=== PATIENT | female | born 1995 | race Caucasian/White ===

== ENCOUNTER 2017-10-19 15:30 | Emergency (ER) | payer MEDICAID ==
[2017-10-19 16:14] VITALS: BP 137/86; PULSE 70; RESP 18; TEMP 98.3; O2SAT 100
== END 2017-10-19 18:46 | disposition left against medical advice (07) ==
LOC: H.ER 15:30
DX: Z02.89 Encounter for other administrative examinations (principal)

== ENCOUNTER 2018-02-17 20:29 | Emergency (ER) | payer MEDICAID ==
[2018-02-17] MEDS ORDERED: Lactated Ringer's 1,000 ML IV STA (21:29)
--- NOTE | 2018-02-17 21:55 | ED PDOC ---
HPI: Abdomen Time Seen by Provider: 02/17/18 21:08 Chief Complaint (Nursing): Abdominal Pain Chief Complaint (Provider): Abdominal Pain History Per: Patient History/Exam Limitations: no limitations Onset/Duration Of Symptoms: Days (5-6) Location Of Pain/Discomfort: Suprapubic Associated Symptoms: Urinary Symptoms (Vaginal bleeding) Additional Complaint(s): 22 years old female otherwise healthy, who is 18 weeks , presents to ER for evaluation of vaginal bleeding started 5 days ago. Patient reports having pelvic pain, describes it as pressure in lower abdomen 6 days ago. She states flow of bleeding is similar to period and reports dark spots. Patient follow up with NURSE CARE MANAGER in [place] but cannot recall the name and states last time she has seen her NURSE CARE MANAGER was 3 weeks ago when everything was fine. She reports they were recently watching her thyroid hormone because it was below the norm. Patient states she did not come earlier because she thought it was normal for some women to have their period during . She denies any dysuria, nausea or diarrhea. PMD: cannot recall the name Past Medical History Reviewed: Historical Data, Nursing Documentation, Vital Signs Vital Signs: Last Vital Signs Temp 98.7 F 02/17/18 20:59 Pulse 68 02/17/18 20:59 Resp 18 02/17/18 20:59 BP 120/81 02/17/18 20:59 Pulse Ox 98 02/17/18 20:59 - Medical History PMH: No Chronic Diseases - Surgical History Surgical History: Cholecystectomy Other surgeries: Left knee surgery - Family History Family History: States: Diabetes, Hypertension, Other Other Family History: High cholesterol - Social History Current smoker - smoking cessation education provided: No Ex-Smoker (has not smoked in the last 12 months): Yes (Hookah, but stopped since ) Alcohol: None Drugs: Denies - Immunization History Hx Tetanus Toxoid Vaccination: Yes - Home Medications Home Medications: Ambulatory Orders Medication Instructions Recorded No Known Home Med 12/29/15 - Allergies Allergies/Adverse Reactions: Allergies Allergy/AdvReac Type Severity Reaction Status Date / Time No Known Allergies Allergy Verified 12/29/15 09:18 Review of Systems ROS Statement: Except As Marked, All Systems Reviewed And Found Negative Gastrointestinal: Positive for: Abdominal Pain (Suprapubic). Negative for: Nausea, Diarrhea Genitourinary Female: Positive for: Vaginal Bleeding. Negative for: Dysuria Physical Exam - Reviewed Nursing Documentation Reviewed: Yes Vital Signs Reviewed: Yes - Physical Exam Appears: Positive for: Non-toxic, No Acute Distress Head Exam: Positive for: ATRAUMATIC, NORMOCEPHALIC Gastrointestinal/Abdominal: Positive for: Tenderness (Mild suprapubic). Negative for: Mass, Guarding, Rebound, Other (Adnexal or midline tenderness) Extremity: Positive for: Normal ROM. Negative for: Tenderness, Swelling Neurologic/Psych: Positive for: Alert, Oriented (x3) - ECG O2 Sat by Pulse Oximetry: 98 (RA) Pulse Ox Interpretation: Normal Medical Decision Making Medical Decision Making: Time: 2108 Initial Impression: vaginal bleeding. Differential includes but not limited to threatened or complete miscarriage, regular menstruation and dysfunctional uterine bleeding. Initial Plan: --Labs --Lactated Ringers 1,000 ml IV Patient reports she saw her NURSE CARE MANAGER for initial care visit but had not seen him again until 3 weeks ago to follow up with blood work. At that time, no US was done or any further evaluation of Scribe Attestation: Documented by Laine Walker, acting as a scribe for Allie Valentine MD. Provider Scribe Attestation: All medical record entries made by the Scribe were at my direction and personally dictated by me. I have reviewed the chart and agree that the record accurately reflects my personal performance of the history, physical exam, medical decision making, and the department course for this patient. I have also personally directed, reviewed, and agree with the discharge instructions and disposition. Disposition - Disposition Forms: [employer] (Mosotho)
[2018-02-17 22:03] LABS: BASO # 0.1 K/uL (0.0-0.2); EOS # 0.2 K/uL (0.0-0.7); EOS % 1.6 % (0.0-4.0); HEMOGLOBIN 14.5 g/dL (12.0-16.0); LYMPH # 3.6 K/uL (1.0-4.3); LYMPH % 35.9 % (20.0-40.0); MEAN CELL VOLUME 84.5 fl (81.0-99.0); MEAN CORPUSCULAR HGB CONC 34.4 g/dL (33.0-37.0); MEAN PLATELET VOLUME 7.2 fl (7.2-11.7); MONO # 0.8 K/uL (0.0-0.8); MONO % 7.7 % (0.0-10.0); NEUT # 5.5 K/uL (1.8-7.0); NEUT % 53.8 % (50.0-75.0); NRBC % 0.2 % (0.0-0.0); RED CELL DISTRIBUTION WIDTH 13.7 % (11.5-14.5); WHITE BLOOD COUNT 10.2 K/uL (4.8-10.8)
[2018-02-17 22:08] LABS: ALB/GLOB RATIO 1.2 (1.0-2.1); ALBUMIN 4.3 g/dL (3.5-5.0); ALT/SGPT 34 U/L (9-52); AST/SGOT 28 U/L (14-36); BLOOD UREA NITROGEN 14 mg/dl (7-17); CALCIUM 9.3 mg/dL (8.4-10.2); GFR NON-AFRICAN AMERICAN > 60; LIPASE 80 U/L (23-300)
--- NOTE | 2018-02-18 00:37 | ED PDOC ---
- Laboratory Results Result Diagrams: 02/17/18 21:35 02/17/18 21:35 - ECG O2 Sat by Pulse Oximetry: 98 (RA) Pulse Ox Interpretation: Normal Medical Decision Making Medical Decision Making: Time: 23:00 Patient was endorsed to me by Dr. Valentine pending ultrasound and reevaluation. Transvaginal Ultrasound: Impression: 1. Normal Uterus 2. Follicular ovaries. 3. No findings for . Time: 0000 Patient informed of results, states she's feeling well. Patient appears very well appearing. Instructed patient to followup with PMD/PEDIATRIC PSYCHOLOGIST. Scribe Attestation: Documented by Jazz Ribera, acting as a scribe for Gunnar Leung MD. Provider Scribe Attestation: All medical record entries made by the Scribe were at my direction and personal ly dictated by me. I have reviewed the chart and agree that the record accurately reflects my personal performance of the history, physical exam, medical decision making, and the department course for this patient. I have also personally directed, reviewed, and agree with the discharge instructions and disposition. Disposition - Clinical Impression Clinical Impression: Abdominal pain, Vaginal bleeding - POA Present On Arrival: None - Disposition [facility] Merline Wagner MD [Family Provider] - Disposition: Routine/Home Disposition Time: 00:00 Condition: STABLE Instructions: Heavy Periods Forms: [employer] (Kenyan)
[2018-02-18 00:59] VITALS: BP 125/81; PULSE 82; RESP 17; TEMP 98.4
[2018-02-18 03:17] VITALS: O2SAT 98
--- NOTE | 2018-02-18 12:14 | US ---
Date of service: 02/17/2018 HISTORY: abnormal vaginal bleeding pelvic pain r/o retained COMPARISON: None available. TECHNIQUE: Real-time transabdominal pelvic ultrasound was performed. In addition a transvaginal pelvic ultrasound was necessary to better depict pelvic anatomy. FINDINGS: UTERUS: Measures 7.0 x 3.6 x 5.5 cm. Anteverted. Cervix length measures approximately 4.1 cm. ENDOMETRIUM: Measures 7 mm in diameter. CERVIX: Cervix length measures approximately 4.1 cm. RIGHT OVARY: Measures 3.3 x 2.0 x 1.8 cm. Blood flow is demonstrated. LEFT OVARY: Measures 2.7 x 1.7 x 2.6 cm. Blood flow is demonstrated. FREE FLUID: No significant free fluid noted. OTHER FINDINGS: None. IMPRESSION: Unremarkable study as above. Preliminary impression was provided by [employer].
== END 2018-02-18 00:44 | disposition home or self-care (01) ==
LOC: H.ER 20:29
DX: O20.9 Hemorrhage in early pregnancy, unspecified (principal); O26.92 Pregnancy related conditions, unspecified, second trimester; R10.2 Pelvic and perineal pain; Z3A.18 18 weeks gestation of pregnancy; Z87.891 Personal history of nicotine dependence
CPT/HCPCS: 76830; 80053; 81025; 83690; 84702; 85025; 86850; 86900; 87491; 87591; 96360; 99284; J7120

== ENCOUNTER 2018-02-19 13:11 | Emergency (ER) | payer MEDICAID ==
--- NOTE | 2018-02-19 13:55 | ED PDOC ---
HPI: General Adult Time Seen by Provider: 02/19/18 13:19 Chief Complaint (Nursing): Abnormal Labs Chief Complaint (Provider): Abnormal Labs History Per: Patient History/Exam Limitations: no limitations Onset/Duration Of Symptoms: Days (x2) Current Symptoms Are (Timing): Still Present Additional Complaint(s): 22 year old female presents to the ED for evaluation of abnormal lab results. Patient was seen here 02/17 where she believes she was secondary to vaginal bleeding, but the u-preg came back negative. Chlamydia cultures were sent out and today she was called for positive results, gonorrhea was negative. Otherwise denies abdominal pain and vaginal discharge. Of note, her boyfriend is with her who is also requesting to be treated. PMD: Merline Wagner Past Medical History Reviewed: Historical Data, Nursing Documentation, Vital Signs - Medical History PMH: Asthma - Surgical History Surgical History: Cholecystectomy - Family History Family History: States: Diabetes, Hypertension - Immunization History Hx Tetanus Toxoid Vaccination: Yes - Home Medications Home Medications: Ambulatory Orders Medication Instructions Recorded No Known Home Med 12/29/15 - Allergies Allergies/Adverse Reactions: Allergies Allergy/AdvReac Type Severity Reaction Status Date / Time No Known Allergies Allergy Verified 02/19/18 13:24 Review of Systems ROS Statement: Except As Marked, All Systems Reviewed And Found Negative Gastrointestinal: Negative for: Abdominal Pain Genitourinary Female: Positive for: Vaginal Bleeding. Negative for: Vaginal Discharge Physical Exam - Reviewed Nursing Documentation Reviewed: Yes Vital Signs Reviewed: Yes - Physical Exam Appears: Positive for: No Acute Distress Head Exam: Positive for: ATRAUMATIC, NORMOCEPHALIC Skin: Positive for: Normal Color. Negative for: Rash Eye Exam: Positive for: Normal appearance Cardiovascular/Chest: Positive for: Regular Rate, Rhythm Respiratory: Positive for: Normal Breath Sounds. Negative for: Accessory Muscle Use, Respiratory Distress Gastrointestinal/Abdominal: Positive for: Normal Exam, Soft. Negative for: Tenderness Pelvic Exam: Positive for: Other (deferred) Neurologic/Psych: Positive for: Alert, Oriented (x3) Medical Decision Making Medical Decision Making: Time: 1345 Initial Impression: chlamydia Initial Plan: u.preg from previous visit, neg. --Zithromax 1000mg PO --Pt advised to follow up with PMD for further testing incuding HIV and Hep. Informed to abstain from sexual contact for one week. Scribe Attestation: Documented by Ellie Dick, acting as a scribe for Veronique Dickens PA-C. Provider Scribe Attestation: All medical record entries made by the Scribe were at my direction and personally dictated by me. I have reviewed the chart and agree that the record accurately reflects my personal performance of the history, physical exam, medical decision making, and the department course for this patient. I have also personally directed, reviewed, and agree with the discharge instructions and disposition. Disposition - Clinical Impression Clinical Impression: Chlamydia infection - Patient ED Disposition Is Patient to be Admitted: No Counseled Patient/Family Regarding: Studies Performed, Diagnosis - Disposition Disposition: Routine/Home Disposition Time: 14:39 Condition: GOOD Additional Instructions: follow up with your inspector filters next week. no sexual contact x 1 week. partners must be treated. Instructions: Chlamydia (DC), Sexually-Transmitted Diseases Forms: [employer] (Mongolian)
== END 2018-02-19 15:00 | disposition home or self-care (01) ==
LOC: H.ER 13:11
DX: A74.9 Chlamydial infection, unspecified (principal)

== ENCOUNTER 2018-05-04 22:23 | Emergency (ER) | payer MEDICAID ==
[2018-05-04 23:15] VITALS: BP 142/84; PULSE 98; RESP 16; TEMP 98.2; O2SAT 99
--- NOTE | 2018-05-05 01:41 | ED PDOC ---
HPI: Abdomen Time Seen by Provider: 05/04/18 23:19 Chief Complaint (Nursing): Abdominal Pain Chief Complaint (Provider): Abdominal Pain History Per: Patient History/Exam Limitations: no limitations Onset/Duration Of Symptoms: Days (x45) Location Of Pain/Discomfort: RUQ, RLQ Associated Symptoms: Nausea. denies: Fever, Chills, Vomiting, Loss Of Appetite, Urinary Symptoms Additional Complaint(s): 22 years old female with no pmhx presents to ER for evaluation of right pelvic pain that goes on and off associated with nausea for one and a half month. Patient reports pain started in pelvic area radiating to belly button. She states pain worsens with cough and bearing down. Patient denies any vomiting, fever, chills, abnormal stools or loss of appetite. PMD: Merline Wagner Past Medical History Reviewed: Historical Data, Nursing Documentation, Vital Signs Vital Signs: Last Vital Signs Temp 98.2 F 05/04/18 23:11 Pulse 98 H 05/04/18 23:11 Resp 16 05/04/18 23:11 BP 142/84 05/04/18 23:11 Pulse Ox 99 05/04/18 23:11 - Medical History PMH: Asthma - Surgical History Surgical History: Cholecystectomy - Family History Family History: States: Diabetes, Hypertension - Social History Current smoker - smoking cessation education provided: No Alcohol: None Drugs: Denies - Immunization History Hx Tetanus Toxoid Vaccination: Yes - Home Medications Home Medications: Ambulatory Orders Medication Instructions Recorded Ibuprofen [Motrin Tab] 600 mg PO Q6 #30 tab 05/05/18 - Allergies Allergies/Adverse Reactions: Allergies Allergy/AdvReac Type Severity Reaction Status Date / Time No Known Allergies Allergy Verified 05/04/18 23:15 Review of Systems ROS Statement: Except As Marked, All Systems Reviewed And Found Negative Constitutional: Negative for: Fever, Chills Gastrointestinal: Positive for: Nausea, Abdominal Pain (right pelvic). Negative for: Vomiting, Hematochezia Physical Exam - Reviewed Nursing Documentation Reviewed: Yes Vital Signs Reviewed: Yes - Physical Exam Appears: Positive for: Non-toxic, No Acute Distress Head Exam: Positive for: ATRAUMATIC, NORMOCEPHALIC Skin: Positive for: Normal Color, Warm, Dry Neck: Positive for: Normal, Painless ROM, Supple Cardiovascular/Chest: Positive for: Regular Rate, Rhythm. Negative for: Murmur Respiratory: Positive for: Normal Breath Sounds. Negative for: Respiratory Di stress Gastrointestinal/Abdominal: Positive for: Tenderness (right sided) Pelvic Exam: Positive for: No Cerv. Motion Tender, Tender Adnexa (mild right sided) Back: Positive for: Normal Inspection. Negative for: L CVA Tenderness, R CVA Tenderness Extremity: Positive for: Normal ROM. Negative for: Pedal Edema, Deformity Neurologic/Psych: Positive for: Alert, Oriented (x3) - ECG O2 Sat by Pulse Oximetry: 99 (RA) Pulse Ox Interpretation: Normal Medical Decision Making Medical Decision Making: Time: 2354 A/P: no specific pelvic pain, not concern for appendicitis --Ordered pelvis US to rule out ovarian pathology such as torsion --Director Of Volunteer Services was dialysis equipment technicianChely monet 0106 Pelvis US Findings: The uterus is normal in size measuring 8x3.7x5.8 cm. The endometrium is normal in thickness measuring 6.2 mm. Normal cervical length measuring 3.3 cm. Anteverted uterus. Right ovary measures 2.8x2.2x1.8 cm. Right ovarian cyst measuring 1.7 cm. The left ovary measures the 3.5x2.9x2.3 cm. Normal bilateral ovarian flow. Impression: Right ovarian simple cyst. Patient continued to be well appearing, feeling better after motrin Advised patient to followup with EQUIPMENT INSTALLER Return precautions and appendicitis precautions discussed Scribe Attestation: Documented by Laine Walker, acting as a scribe for Gunnar Leung MD. Provider Scribe Attestation: All medical record entries made by the Scribe were at my direction and personally dictated by me. I have reviewed the chart and agree that the record accurately reflects my personal performance of the history, physical exam, medical decision making, and the department course for this patient. I have also personally directed, reviewed, and agree with the discharge instructions and disposition. Disposition - Clinical Impression Clinical Impression: Ovarian cyst - Patient ED Disposition Is Patient to be Admitted: No - Disposition [facility]] Disposition Time: 01:00 Condition: STABLE Prescriptions: Ibuprofen [Motrin Tab] 600 mg PO Q6 #30 tab Instructions: Ovarian Cysts Forms: [employer] (Ukrainian)
--- NOTE | 2018-05-05 11:03 | US ---
Date of service: 05/05/2018 HISTORY: R sided pelvic pain COMPARISON: None available. TECHNIQUE: Transabdominal and transvaginal pelvic ultrasound was performed. FINDINGS: UTERUS: Measures 8.0 x 3.7 x 5.8 cm. Anteverted, normal in size and appearance. Normal myometrial echotexture. No fibroid or other mass lesion seen. ENDOMETRIUM: Measures 6.2 mm in diameter. Unremarkable. CERVIX: No cervical abnormality identified. RIGHT OVARY: Measures 2.8 x 2.2 x 1.8 cm. No solid mass. Normal flow. There is a 1.7 x 1.6 x 1.5 cm dominant follicle. LEFT OVARY: Measures 3.5 x 2.9 x 2.3 cm. No solid mass. Normal flow. FREE FLUID: No significant free fluid noted. OTHER FINDINGS: None. IMPRESSION: Unremarkable pelvic ultrasound. A preliminary report was provided by [employer].
== END 2018-05-05 02:01 | disposition home or self-care (01) ==
LOC: H.ER 22:23
DX: N83.201 Unspecified ovarian cyst, right side (principal); J45.909 Unspecified asthma, uncomplicated

== ENCOUNTER 2018-05-30 21:03 | Emergency (ER) | payer MEDICAID ==
[2018-05-30 21:39] VITALS: BP 135/89; PULSE 89; RESP 18; TEMP 98.2; O2SAT 100
--- NOTE | 2018-05-30 22:52 | ED PDOC ---
HPI: Eye Injury/Pain Time Seen by Provider: 05/30/18 21:39 Chief Complaint (Nursing): Eye Problem Additional Complaint(s): 22 y/o F with hx of asthma who presents with Left eye pain and left sided WADE/facial pain for the past 2 days. She states that the pain in her eye and the WADE began about the same time. She has been having intermittent blurriness and constant pain. She took Advil 800mg PO this morning with minimal improvement in pain. Denies crusting or drainage. Has been having increased lacrimation and nasal drainage. Denies fever, chills, night sweats, N/V, diarrhea, floaters, seeing double. She has mild neck pain in addition to her WADE. Past Medical History Vital Signs: Last Vital Signs Temp 98.2 F 05/30/18 21:37 Pulse 89 05/30/18 21:37 Resp 18 05/30/18 21:37 BP 135/89 05/30/18 21:37 Pulse Ox 100 05/30/18 21:37 - Medical History PMH: Asthma - Surgical History Surgical History: Cholecystectomy - Family History Family History: States: Diabetes, Hypertension - Immunization History Hx Tetanus Toxoid Vaccination: Yes - Home Medications Home Medications: Ambulatory Orders Medication Instructions Recorded Ibuprofen [Motrin Tab] 600 mg PO Q6 #30 tab 05/05/18 Fluticasone Propionate [Flonase] 1 spr NS BID PRN #1 spr 05/30/18 Ibuprofen [Motrin Tab] 800 mg PO Q6 PRN 7 Days tab 05/30/18 Prednisone 50 mg PO DAILY #3 tablet 05/30/18 - Allergies Allergies/Adverse Reactions: Allergies Allergy/AdvReac Type Severity Reaction Status Date / Time No Known Allergies Allergy Verified 05/30/18 21:37 Physical Exam - Reviewed Nursing Documentation Reviewed: Yes Vital Signs Reviewed: Yes - Physical Exam Appears: Positive for: Uncomfortable Eye Exam: Positive for: Conjunctival injection (left conjunctival injection with small conjunctival hemorrhage in RLQ of eye. ), Other (no corneal haziness, eye discharge. ) - ECG O2 Sat by Pulse Oximetry: 100 Medical Decision Making Medical Decision Making: Patient seen with Dr. Leung. Symptoms and physical exam c/w likely sinusitis with sinus WADE. Will give Prednisone x 3 days and Flonase. Tylenol 650mg PO x 1 for pain. Disposition - Clinical Impression Clinical Impression: Sinus headache - Patient ED Disposition Is Patient to be Admitted: No - Disposition Referrals: Merline Wagner MD [Family Provider] - Disposition: Routine/Home Disposition Time: 23:15 Condition: STABLE Additional Instructions: Take Ibuprofen as needed for pain. Use Flonase for nasal congestion. Take Prednisone as prescribed to help reduce inflammation. Return to ER if you start to have visual problems, worsening WADE, weakness. F/u with your primary care doctor pr neurologist for further evaluation of WADE. Prescriptions: Fluticasone Propionate [Flonase] 1 spr NS BID PRN #1 spr PRN Reason: Nasal Congestion Ibuprofen [Motrin Tab] 800 mg PO Q6 PRN 7 Days tab PRN Reason: Pain, Moderate (4-7) Prednisone 50 mg PO DAILY #3 tablet Instructions: Migraine Headache (DC), Sinus Headache (DC) Forms: [employer] (Estonian) Print Language: ITALIAN
== END 2018-05-30 23:21 | disposition home or self-care (01) ==
LOC: H.ER 21:03
DX: J32.9 Chronic sinusitis, unspecified (principal)